=== PATIENT | male | born 1955 | race Caucasian/White ===

== ENCOUNTER 2020-06-21 20:03 | Observation (INO) ==
--- NOTE | 2020-06-21 21:02 | ERNOTE ---
Dyspnea - Date Date of Service: 06/21/20 - General Time Seen by Provider: 06/21/20 20:41 - Immun/Allergies/Home Medications Immunizations: IMMUNIZATION HX Immunizations Up to Date Yes History of Influenza Vaccine No Hx Pneumococcal Vaccination Yes Allergies/Adverse Reactions: Allergies povidone-iodine [From Betadine] Allergy (Verified 06/21/20 20:32) soap [From Betadine] Allergy (Verified 06/21/20 20:32) Poppy seeds Allergy (Uncoded 06/21/20 20:32) Home Medications: HOME MEDICATIONS Bupropion HCl [Wellbutrin] 100 mg PO TID 10/21/14 [Last Taken Unknown] Cyclobenzaprine HCl 10 mg PO PRN PRN 10/21/14 [Last Taken Unknown] Lisinopril [Zestril] 20 mg PO BID 10/21/14 [Last Taken Unknown] Metoprolol Tartrate [Lopressor] 100 mg PO BID 10/21/14 [Last Taken Unknown] Oxybutynin Chloride [Ditropan Xl] 15 mg PO DAILY 10/21/14 [Last Taken Unknown] Pramipexole Di-HCl [Pramipexole Dihydrochloride] 0.125 mg PO HS 10/21/14 [Last Taken Unknown] Terazosin HCl 10 mg PO DAILY 10/21/14 [Last Taken Unknown] glipiZIDE [Glucotrol Xl] 2.5 mg PO BID 10/21/14 [Last Taken Unknown] metFORMIN HCL [Glucophage] 1,000 mg PO BID 10/21/14 [Last Taken Unknown] traZODone HCL [Desyrel] 50 mg PO HS PRN 10/21/14 [Last Taken Unknown] - History of Present Illness Narrative: 65-year-old male with morbid obesity presents for a complaint of increasing dyspnea states he has also had a 30 to 40 pound weight gain over the past week. He normally takes his fluid pills which help him however this past week he worked at a [employer] and did not take them so his last dose of Lasix was approximately 1 week ago patient denies any chest pain but feels like he has some pulmonary edema or fluid overload he says his ankles are more swollen than usual. Review of Systems - Review of Systems Constitutional: Present: See HPI Respiratory: Present: See HPI Cardiology: Present: See HPI Musculoskeletal: Present: other - Morbid obesity requiring the use of an electric chair Skin: Present: other - Hyperpigmentation and dryness of the skin peripheral only All Other Systems: All systems neg except as marked Medical History (Last Reviewed 06/21/20 @ 20:58 by Kevan Sheth MD) Afib Diabetes Hx of fracture of femur Surgical History: Surgical History (Last Reviewed 06/21/20 @ 20:58 by Kevan Sheth MD) History of hernia repair Hx of appendectomy Hx of cholecystectomy Family History: Family History (Last Reviewed 06/21/20 @ 20:58 by Kevan Sheth MD) Mother Diabetes Breast cancer metastasized to axillary lymph node Father Myocardial infarction Social History: (Last Reviewed 06/21/20 @ 20:58 by Kevan Sheth MD) Social History: parent marital status: current occupational status: disabled Tobacco: Smoking Status: Never smoker Alcohol: alcohol intake: former Substance Use: substance use type: does not use Physical Exam - Physical Exam General Appearance: Present: wd/wn, alert, no apparent distress Head Exam: Present: normal inspection, no evidence of injury Eye Exam: Normal inspection: bilateral Ears, Nose, Throat: Present: normal ENT inspection Neck: Present: supple, full range of motion Respiratory: Present: no respiratory distress, other - Decreased breath sounds in bases however body habitus makes exam difficult Cardiovascular/Chest: Present: irregularly irregular Gastrointestinal/Abdominal: Present: other - Morbidly obese nontender Extremity Exam: Present: other - Chronic decreased range of motion chronic edema which patient states is worsening evidence of peripheral vascular disease with hyperpigmentation and drying of the skin distally right the edema is symmetrical however the hyperpigmentation is worse on the right he is nontender otherwise Neurological Exam: Present: alert, oriented, normal mood/affect, other - Baseline no obvious alteration in mental status Skin Exam: Present: other - As noted above Progress - Date and Time Seen: Date and Time: 06/21/20 21:00 Discussed with patient and family who is at the bedside and the need to obtain laboratory testing and x-ray patient is hypertensive however and will give a dose of Lasix which the patient states he has been noncompliant with this may assist with his breathing and possible pulmonary edema with fluid overload without hypoxia or severe respiratory distress 06/21/20 22:02 Discussed with patient and family at the bedside the findings of all tests including a negative troponin elevated BNP and therapeutic INR. Patient is amenable to being admitted to the hospital for CHF exacerbation this was discussed with Dr. Alcaraz who is on-call for the medicine service who accepted the patient to care. - Vital Signs Patient's Vital Signs:: I have reviewed the patient's vital signs. Vital Signs: Vital Signs 06/21/20 20:20 Temperature 36.8 C Pulse Rate 83 Respiratory Rate 25 H Blood Pressure 145/87 O2 Sat by Pulse Oximetry 94 - EKG EKG #1 EKG: atrial fibrillation, other - Right axis deviation rate 80 EKG read: Reviewed by me - Progress/Reassessment Chief Complaint: Dyspnea Departure Clinical Impression: CHF exacerbation Qualifiers: Heart failure type: unspecified Qualified Code(s): I50.9 - Heart failure, unspecified - Departure Disposition: Short Term Hospital Inpatient Condition: Good Referrals: Doug Dominguez MD [Primary Care Provider] -
[2020-06-21 21:07] LABS: Hematocrit 38.7 % (42.0-52.0); Hemoglobin 12.3 gm/dL (13.5-18.0); Mean Cell Volume 85.1 fl (78-100); Mean Corpuscular Hgb Conc 31.8 g/dl (32-36); Mean Platelet Volume 10.1 fl (8-11.3); Neutrophil # 5.8 K/mm3 (1.3-6.0); Neutrophil % 75.6 % (42-75.0); Platelet Count 240 K/mm3 (150-450); Red Blood Count 4.55 M/mm3 (4.7-6.0); Red Cell Distribution Width 13.9 % (11.5-14.0); White Blood Count 7.6 K/mm3 (4.0-10.5)
[2020-06-21 21:18] LABS: INR 2.62 INR (0.92-1.08)
[2020-06-21 21:24] LABS: Troponin I 0.035 ng/mL (0.00-0.10)
[2020-06-21 21:30] LABS: Albumin * 2.9 gm/dl (3.4-5.0); Anion Gap 11.8 mmol/L (6.8-13.8); BUN/Creatinine Ratio 8.7 (9.0-21.6); Bilirubin, Total 0.6 mg/dL (0.0-1.1); Ca. Corrected For Albumin 9.2 mg/dL (8.4-10.2); Calcium * 8.6 mg/dL (7.9-10.9); Carbon Dioxide 27.3 mmol/L (24-32.6); Potassium 4.1 mmol/L (3.4-4.6); Total Protein 6.6 gm/dL (6.2-8.2)
[2020-06-21] MEDS ORDERED: FUROSEMIDE 10 MG/ML VIAL IV ONE (21:49)
[2020-06-22] MEDS ORDERED: glipiZIDE 10 MG TABLET PO ONE (01:18)
[2020-06-22] MEDS ORDERED: TERAZOSIN HCL 1 MG CAPSULE PO ONE (01:23)
[2020-06-22] MEDS ORDERED: MELATONIN 3,000 MCG TABLET PO ONE (01:27)
[2020-06-22] MEDS ORDERED: traZODone HCL 50 MG TABLET PO ONE (01:28)
[2020-06-22] MEDS ORDERED: TAMSULOSIN HCL 0.4 MG CAP.SR.24H PO ONE (01:29)
--- NOTE | 2020-06-22 07:09 | HPDIS ---
Chief Complaint - Chief Complaint Date of Service: 06/22/20 Time of Service: 07:08 Chief Complaint: shortness of breath History of Present Illness: Pedro López is a 65-year-old white male with past medical history significant for chronic atrial fibrillation, diabetes mellitus type 2, morbid obesity, who was admitted on 06/21/2020 because of shortness of breath. The patient says that he takes his fluid pills only on as-needed basis. He says he takes furosemide at times and at times bumetanide. He however in the last week did not take any thing at all as he was working at a [employer] in [place]. He said he started getting more weight and is gained about 30 to 40 pounds since then. He has a chronic wound on his left lower quadrant and is following up with the wound clinic in [place]. His blood work showed his hemoglobin to be 12.3, with an MCV of 85.1, electrolytes within normal limits, GFR of 68, BNP of 1091. His chest x-ray showed patchy bibasilar atelectasis versus apical airspace disease. Borderline cardiac silhouette enlargement with mild pulmonary vascular congestion. His EKG showed atrial fibrillation with controlled ventricular rate of 80, right axis deviation. His INR is therapeutic. He was given IV Lasix of 100 mg and was admitted for observation. Today he is feeling much better and is able to go to the bathroom without getting short of breath. Medical History (Last Updated 06/22/20 @ 00:07 by Genoveva Reyna RN) Afib Amputated toe of right foot Diabetes Hx of fracture of femur Surgical History: Surgical History (Last Reviewed 06/22/20 @ 00:07 by Genoveva Reyna RN) History of hernia repair Hx of appendectomy Hx of cholecystectomy Family History: Family History (Last Reviewed 06/22/20 @ 00:07 by Genoveva Reyna RN) Mother Diabetes Breast cancer metastasized to axillary lymph node Father Myocardial infarction Social History: (Last Reviewed 06/22/20 @ 00:08 by Genoveva Reyna RN) Social History: parent marital status: current occupational status: disabled Tobacco: Smoking Status: Never smoker Alcohol: alcohol intake: former Substance Use: substance use type: does not use Review Of Systems (GEN) - Review of Systems Generalized/Overall Review: Present: Weight gain. Absent: Chills, Fever EENTM: Absent: Blurred Vision, Double Vision Respiratory: Present: Shortness of Breath, Orthopnea. Absent: Cough, Wheezing Cardiac: Present: Edema. Absent: Chest Pain, Palpitations Abdominal: Absent: Nausea, Vomiting, Abdominal Pain Genitourinary: Absent: Urgency, Frequency Musculoskeletal: Absent: Joint Pain, Back Pain Neurological: Absent: Headache Skin: Absent: Lesions, Rash Endocrine: Absent: Intolerance to Cold, Intolerance to Heat Misc: All systems neg except as marked Immunizations: IMMUNIZATION HX Immunizations Up to Date Yes History of Influenza Vaccine No Hx Pneumococcal Vaccination Yes Allergies/Adverse Reactions: Allergies Allergy/AdvReac Type Severity Reaction Status Date / Time povidone-iodine Allergy Verified 06/21/20 20:32 [From Betadine] soap [From Betadine] Allergy Verified 06/21/20 20:32 Poppy seeds Allergy Uncoded 06/21/20 20:32 Home Medications: HOME MEDICATIONS metFORMIN HCL [Glucophage] 1,000 mg PO BID 10/21/14 [Last Taken 06/21/20] traZODone HCL [Desyrel] 50 mg PO HS 10/21/14 [Last Taken 06/20/20] Cholecalciferol (Vitamin D3) [Vitamin D3] 2,000 unit PO DAILY 06/21/20 [Last Taken Unknown] Digoxin 250 mcg PO DAILY 06/21/20 [Last Taken 06/21/20] Enalapril Maleate 25 mg PO DAILY 06/21/20 [Last Taken 06/21/20] Melatonin 60 mg PO HS 06/21/20 [Last Taken 06/20/20] Metoprolol Succinate 200 mg PO DAILY 06/21/20 [Last Taken 06/21/20] Tamsulosin HCl 0.4 mg PO BID 06/21/20 [Last Taken 06/21/20] Terazosin HCl 2 mg PO HS 06/21/20 [Last Taken 06/20/20] Warfarin Sodium [Jantoven] 2 tab PO DAILY 06/21/20 [Last Taken 06/21/20] Furosemide [Lasix] 80 mg PO DAILY #60 06/22/20 [Last Taken Unknown] Potassium Chloride 10 meq PO DAILY #30 tablet.er 06/22/20 [Last Taken Unknown] glipiZIDE [Glipizide] 10 mg PO DAILY 06/22/20 [Last Taken 06/21/20 05:30] glipiZIDE [Glipizide] 20 mg PO HS 06/22/20 [Last Taken Unknown] Exam - Exam Vital Signs: Vital Signs - Last Taken Temp 36.9 C 06/21/20 23:20 Pulse 80 06/22/20 05:00 Resp 20 06/22/20 05:00 BP 139/80 06/21/20 23:20 Pulse Ox 100 06/22/20 05:00 Constitutional: Present: Alert, Oriented x3, Cooperative, Morbidly obese ENT Exam: Present: hearing grossly normal Eye Exam: bilateral eye: normal inspection, PERRL, EOMI Neck: Present: supple. Absent: lymphadenopathy (R), lymphadenopathy (L) Respiratory: Present: decreased breath sounds, rales, No wheezing Cardiovascular/Chest: Present: no murmur, JVD, irregularly irregular Abdomen: Present: Normal bowel sounds, soft, obese, other - Pannus, open ulcer left lower quadrant, hypoactive Diagnostic Studies: Abnormal Lab Results 06/21/20 06/21/20 06/21/20 Range/Units 20:50 20:50 20:50 RBC 4.55 L (4.7-6.0) M/mm3 Hgb 12.3 L (13.5-18.0) gm/dL Hct 38.7 L (42.0-52.0) % MCHC 31.8 L (32-36) g/dl Immature Gran % (Auto) 0.70 H (0.001-0.429) % Immature Gran # (Auto) 0.05 H (0.000-0.0310) K/mm3 Neutrophils % 75.6 H (42-75.0) % Lymphocytes % 13.4 L (20-51) % Lymphocytes # 1.02 L (1.5-3.5) k/mm3 PT 26.0 H (9.1-10.7) Seconds INR (Anticoag Therapy) 2.62 H (0.92-1.08) INR BUN/Creatinine Ratio 8.7 L (9.0-21.6) Random Glucose 223 H (70-110) mg/dL ALT 16 L (19-67) U/L B-Natriuretic Peptide 1091 H (5-350) pg/mL Albumin 2.9 L (3.4-5.0) gm/dl Laboratory Results WBC 7.6 K/mm3 (4.0-10.5) 06/21/20 20:50 RBC 4.55 M/mm3 (4.7-6.0) L 06/21/20 20:50 Hgb 12.3 gm/dL (13.5-18.0) L 06/21/20 20:50 Hct 38.7 % (42.0-52.0) L 06/21/20 20:50 MCV 85.1 fl (78-100) 06/21/20 20:50 MCH 27.0 pg (27-31) 06/21/20 20:50 MCHC 31.8 g/dl (32-36) L 06/21/20 20:50 RDW 13.9 % (11.5-14.0) 06/21/20 20:50 Plt Count 240 K/mm3 (150-450) 06/21/20 20:50 MPV 10.1 fl (8-11.3) 06/21/20 20:50 Immature Gran % (Auto) 0.70 % (0.001-0.429) H 06/21/20 20:50 Immature Gran # (Auto) 0.05 K/mm3 (0.000-0.0310) H 06/21/20 20:50 Neutrophils % 75.6 % (42-75.0) H 06/21/20 20:50 Lymphocytes % 13.4 % (20-51) L 06/21/20 20:50 Monocytes % 7.6 % (0.0-9) 06/21/20 20:50 Eosinophils % 2.0 % (0.0-3.0) 06/21/20 20:50 Basophils % 0.7 % (0.0-1.0) 06/21/20 20:50 Nucleated RBC % 0.0 k/mm3 (0-1) 06/21/20 20:50 Neutrophils # 5.8 K/mm3 (1.3-6.0) 06/21/20 20:50 Lymphocytes # 1.02 k/mm3 (1.5-3.5) L 06/21/20 20:50 Monocytes # 0.6 k/mm3 (0.0-1.0) 06/21/20 20:50 Eosinophils # 0.2 k/mm3 (0.0-0.7) 06/21/20 20:50 Absolute Basophils 0.1 k/mm3 (0.0-0.1) 06/21/20 20:50 PT 26.0 Seconds (9.1-10.7) H 06/21/20 20:50 INR (Anticoag Therapy) 2.62 INR (0.92-1.08) H 06/21/20 20:50 Sodium 138 mmol/L (132-142) 06/21/20 20:50 Plasma Sodium 140 mmol/L (130-142) 06/21/20 20:50 Potassium 4.1 mmol/L (3.4-4.6) 06/21/20 20:50 Chloride 103 mmol/L (97-106) 06/21/20 20:50 Carbon Dioxide 27.3 mmol/L (24-32.6) 06/21/20 20:50 Anion Gap 11.8 mmol/L (6.8-13.8) 06/21/20 20:50 BUN 10 mg/dL (6-23) 06/21/20 20:50 Creatinine 1.15 mg/dL (0.4-1.4) 06/21/20 20:50 Est GFR (Non-Af Amer) 68 mL/min (60-130) 06/21/20 20:50 BUN/Creatinine Ratio 8.7 (9.0-21.6) L 06/21/20 20:50 Random Glucose 223 mg/dL (70-110) H 06/21/20 20:50 Calcium 8.6 mg/dL (7.9-10.9) 06/21/20 20:50 Calcium Adj for Albumin 9.2 mg/dL (8.4-10.2) 06/21/20 20:50 Total Bilirubin 0.6 mg/dL (0.0-1.1) 06/21/20 20:50 AST 13 U/L (0-48) 06/21/20 20:50 ALT 16 U/L (19-67) L 06/21/20 20:50 Alkaline Phosphatase 90 U/L (50-170) 06/21/20 20:50 Troponin I 0.035 ng/mL (0.00-0.10) 06/21/20 20:50 B-Natriuretic Peptide 1091 pg/mL (5-350) H 06/21/20 20:50 Total Protein 6.6 gm/dL (6.2-8.2) 06/21/20 20:50 Albumin 2.9 gm/dl (3.4-5.0) L 06/21/20 20:50 SARS-CoV-2 (PCR) Not detected (NotDetected) 06/21/20 20:05 Assessment/Plan - Narrative Narrative: Pedro is a 65-year-old white male who was admitted for increasing shortness of breath and weight gain of 30 to 40 pounds due to noncompliance of his medications. The patient said that he was never told that he had he has a history of congestive heart failure. By history then this could be new onset congestive heart failure. We will continue to diurese him and he will need to be worked up more as an outpatient by his primary care physician like doing an echocardiogram. We do not have it on the weekends. He also has a chronic wound on his left lower quadrant which heals and opens up intermittently. He is being followed up by the wound clinic in [facility] in [place]. - Assessment/Plan (1) Congestive heart failure Problem: Resolved Qualifiers: Heart failure type: combined systolic and diastolic (2) Chronic atrial fibrillation Problem: Chronic (3) Morbid obesity Problem: Chronic (4) Diabetes mellitus Problem: Chronic Qualifiers: Diabetes mellitus type: type 2 (1) Congestive heart failure Problem: Resolved Qualifiers: Heart failure type: combined systolic and diastolic (2) Chronic atrial fibrillation Problem: Chronic (3) Morbid obesity Problem: Chronic (4) Diabetes mellitus Problem: Chronic Qualifiers: Diabetes mellitus type: type 2 Date of Discharge:: 06/22/20 Hospital Course: Pedro López is a 65-year-old white male with past medical history significant for chronic atrial fibrillation, diabetes mellitus type 2, morbid obesity, who was admitted on 06/21/2020 because of shortness of breath. The patient says that he takes his fluid pills only on as-needed basis. He says he takes furosemide at times and at times bumetanide. He however in the last week did not take any thing at all as he was working at a [employer] in [employer]. He said he started getting more weight and is gained about 30 to 40 pounds since then. He has a chronic wound on his left lower quadrant and is following up with the wound clinic in [place]. His blood work showed his hemoglobin to be 12.3, with an MCV of 85.1, electrolytes within normal limits, GFR of 68, BNP of 1091. His chest x-ray showed patchy bibasilar atelectasis versus apical airspace disease. Borderline cardiac silhouette enlargement with mild pulmonary vascular congestion. His EKG showed atrial fibrillation with controlled ventricular rate of 80, right axis deviation. His INR is therapeutic. He was given IV Lasix of 100 mg and was admitted for observation. Today he is feeling much better and is able to go to the bathroom without getting short of breath. We will diurese one more time today. We will discharge him with a higher dose of his diuretic. He will need to follow-up with his primary care physician Dr. Reza Jimenez in 1 week. He was told to follow up with his triage assistant . He had done an echocardiogram on him last year as per patient. He was also told to follow up with his wound clinic in [facility]. He was encourage to take his medications religiously and stay on a low-salt diet. Procedures Performed: none Results and Findings: Lab Pending Results 06/21/20 20:05: SARS-CoV-2 (PCR) Not detected 06/21/20 20:50: WBC 7.6, RBC 4.55 L, Hgb 12.3 L, Hct 38.7 L, MCV 85.1, MCH 27.0, MCHC 31.8 L, RDW 13.9, Plt Count 240, MPV 10.1, Immature Gran % (Auto) 0.70 H, Immature Gran # (Auto) 0.05 H, Neutrophils % 75.6 H, Lymphocytes % 13.4 L, Monocytes % 7.6, Eosinophils % 2.0, Basophils % 0.7, Nucleated RBC % 0.0, Neutrophils # 5.8, Lymphocytes # 1.02 L, Monocytes # 0.6, Eosinophils # 0.2, Absolute Basophils 0.1 06/21/20 20:50: Sodium 138, Plasma Sodium 140, Potassium 4.1, Chloride 103, Carbon Dioxide 27.3, Anion Gap 11.8, BUN 10, Creatinine 1.15, Est GFR (Non-Af Amer) 68, BUN/Creatinine Ratio 8.7 L, Random Glucose 223 H, Calcium 8.6, Calcium Adj for Albumin 9.2, Total Bilirubin 0.6, AST 13, ALT 16 L, Alkaline Phosphatase 90, Troponin I 0.035, B-Natriuretic Peptide 1091 H, Total Protein 6.6, Albumin 2.9 L 06/21/20 20:50: PT 26.0 H, INR (Anticoag Therapy) 2.62 H Discharge Location: Home Disposition: Home self-care Condition: Stable Discharge Activity: Activity as tolerated Discharge Diet: Consistent carbs, Low salt Referrals: Doug Dominguez MD [Primary Care Provider] - Additional Patient Instructions (free text): Follow-up with his primary care physician in 1 week- Dr. Reza Nguyễn. Please make appointment with Wound Clinic in [facility]. He will call his triage assistant for a follow up appointment per patient. Prescriptions (Any new or edited meds): Furosemide [Lasix] 80 mg PO DAILY #60 Potassium Chloride 10 meq PO DAILY #30 tablet.er Transmission Status: Received by [facility] Complete Home Medications List: Complete Home Medication List: metFORMIN HCL [Glucophage] 1,000 mg PO BID 10/21/14 traZODone HCL [Desyrel] 50 mg PO HS 10/21/14 Cholecalciferol (Vitamin D3) [Vitamin D3] 2,000 unit PO DAILY 06/21/20 Digoxin 250 mcg PO DAILY 06/21/20 Enalapril Maleate 25 mg PO DAILY 06/21/20 Melatonin 60 mg PO HS 06/21/20 Metoprolol Succinate 200 mg PO DAILY 06/21/20 Tamsulosin HCl 0.4 mg PO BID 06/21/20 Terazosin HCl 2 mg PO HS 06/21/20 Warfarin Sodium [Jantoven] 2 tab PO DAILY 06/21/20 Furosemide [Lasix] 80 mg PO DAILY #60 06/22/20 Potassium Chloride 10 meq PO DAILY #30 tablet.er 06/22/20 glipiZIDE [Glipizide] 10 mg PO DAILY 06/22/20 glipiZIDE [Glipizide] 20 mg PO HS 06/22/20 Amb Orders for Discharge: Basic Metabolic Panel Time Frame: 1 Week, Facility: [facility], Location: Laboratory Forms: Patient Portal Registration
[2020-06-22] MEDS ORDERED: glipiZIDE 10 MG TABLET PO SCH ×2 (07:30→21:00)
[2020-06-22] MEDS ORDERED: CHOLECALCIFEROL 1,000 UNIT CAPSULE PO SCH (09:00)
[2020-06-22] MEDS ORDERED: ENALAPRIL MALEATE 20 MG TABLET PO SCH (09:00)
[2020-06-22] MEDS ORDERED: ENALAPRIL MALEATE PO SCH ×2 (09:00)
[2020-06-22] MEDS ORDERED: DIGOXIN 0.125 MG TABLET PO SCH (09:00)
[2020-06-22] MEDS ORDERED: METOPROLOL SUCCINATE 100 MG TABLET.SA PO SCH (09:00)
[2020-06-22] MEDS ORDERED: TAMSULOSIN HCL 0.4 MG CAP.SR.24H PO SCH ×2 (09:00→21:00)
[2020-06-22] MEDS ORDERED: FUROSEMIDE 10 MG/ML VIAL IV ONE (14:11)
[2020-06-22 14:48] LABS: Anion Gap 17.8 mmol/L (6.8-13.8); BUN/Creatinine Ratio 9.1 (9.0-21.6); Calcium * 9.3 mg/dL (7.9-10.9); Carbon Dioxide 26.2 mmol/L (24-32.6); Estimated Creat Clear 64.8
[2020-06-22] MEDS ORDERED: WARFARIN SODIUM 7.5 MG TABLET PO SCH (17:00)
[2020-06-22 17:50] VITALS: BP 132/68
[2020-06-22] MEDS ORDERED: TERAZOSIN HCL 1 MG CAPSULE PO SCH (21:00)
[2020-06-22] MEDS ORDERED: traZODone HCL 50 MG TABLET PO SCH ×2 (21:00)
== END 2020-06-22 17:40 | disposition home or self-care (01) ==
LOC: ER 20:03 → MS 22:29 → INTOOBSV 22:29 → MS 23:20
PROVIDERS: ADMIT Internal Medicine; ATTEND Internal Medicine